=== PATIENT | male | born 1990 | race Two or more races ===

== ENCOUNTER 2024-12-11 16:22 | Emergency (ER) | payer MEDICAID, SELFPAY ==
[2024-12-11 16:59] VITALS: BP 129/76; PULSE 78; RESP 18; TEMP 37.6; O2SAT 96; BMI 33.0
--- NOTE | 2024-12-11 17:09 | EDNOTE_ITS ---
Upper Respiratory Inf. RME/HPI General Chief Complaint: Flu Like Symptoms Stated Complaint: CHILLS, FEVER, COUGH, HEADACHE Time Seen by Provider: 12/11/24 16:31 Arrival date/time: 12/11/24 16:22 RME / HPI RME / HPI Narrative: 34-year-old male patient with no significant medical history, came in for evaluation regarding flulike symptoms for the last 4 days, associated with shortness of breath, worsening cough, 70 moderate. Patient also complained of on and off fever. Denies any other complaints medication was taken prior to arrival. Related Data Previous Rx's ?Medication ?Instructions ?Recorded gentamicin 0.3 % eye drops 1 drop ophthalmic (eye) Q4H #5 mL 06/21/18 phenazopyridine 200 mg tablet 200 mg PO TID 6 doses #6 tabs 07/16/24 (Pyridium) ibuprofen 800 mg tablet 800 mg PO TID PRN pain #30 t abs 12/11/24 oseltamivir 75 mg capsule (Tamiflu) 75 mg PO BID 5 day s #10 caps 12/11/24 Allergies Allergy/AdvReac Type Severity Reaction Status Date / Time No Known Allergies Allergy Verified 12/11/24 16:23 Review of Systems Review of Systems Narrative Review of Systems: Review of system reviewed and within normal limits except mentioned in HPI ED Exam Narrative Physical exam: VITAL SIGNS: Reviewed. GENERAL APPEARANCE: Alert and interactive, follows commands, no acute distress, HEAD AND FACE: Non-traumatic. ENT: PERRL, pink conjunctivitis, eyelid no trauma, Mucous membrane moist. NECK: Supple, nontender, no nuchal rigidity. CHEST: No tenderness, no crepitus, no paradoxical movement, no retractions. LUNGS: Clear, well ventilated, symmetric, no rales, no wheezing, no ronchi, no stridor, good breath sounds bilaterally. HEART: Regular rate, regular rhythm, no murmur, no gallops. ABDOMEN: Soft, positive bowel sounds, nondistended, no guarding, nontender, no rebound, no masses, RECTAL: Deferred. GENITAL: Deferred. NEUROLOGICAL: Gross motor function intact sensory function intact, Appropriate for age. MUSCULOSKELETAL: low back nontender, full range of motion. EXTREMITIES: Nontender, full range of motion. SKIN: Color pink, dry, no rash, no lacerations, no abrasions, no contusions. LYMPHATICS: Deferred. Course Quality Measures none Orders Category Date Time Status Bedside COVID-19 Antigen Test NOW Care 12/11/24 17:09 Active Bedside Influenza A&B Antigen Test NOW Care 12/11/24 17:09 Completed XR chest 2V Stat Exams 12/11/24 17:09 Completed Ibuprofen Tab [Motrin Tab] Med 12/11/24 17:09 Discontinued 800 mg PO X1 ONE Oseltamivir [Tamiflu] Med 12/11/24 19:25 Discontinued 75 mg PO X1 ONE predniSONE Med 12/11/24 17:09 Discontinued 60 mg PO X1 ONE Vital Signs Vital signs: Vital Signs Temperature 99.7 F 12/11/24 16:59 Pulse Rate 78 12/11/24 16:59 Respiratory Rate 18 12/11/24 16:59 Blood Pressure 129/76 12/11/24 16:59 Pulse Oximetry (%) 96 12/11/24 16:59 Oxygen Delivery Method Room Air 12/11/24 16:59 Upper Respiratory Infection MDM Narrative MDM Narrative:: Patient tested positive for influenza. The rest of the labs unremarkable except for possible pneumonia on the right however patient's not having pain to the right side of the chest. Patient pneumonia is viral in nature. I will not start the patient on antibiotic. Patient received Tamiflu in the emergency room. Patient appears nontoxic and hemodynamically stable. Patient discharged home and instructed to follow-up with primary care provider in 24 to 48 hours. Instructed to return to the emergency department immediately if worsening of symptoms Patient data External records reviewed:: None Clinical information provided by:: patient Social determinants that could affect healthcare access:: none Patient has the following chronic illnesses:: None How is presenting disease/condition affected by chronic disease/condition?: no chronic disease Evaluation data The following diagnostics were reviewed and interpreted by me:: lab results and radiology exam(s) Lab and/or radiology exams considered but not ordered:: None Interpretation Summary: See results in MDM Medications / Prescriptions Medications or Prescriptions considered but not ordered:: None Medication administrations:: Medication Administration History Discontinued Medications Ibuprofen (Ibuprofen Tab 400 Mg Tablet) 800 mg PO X1 ONE Stop: 12/11/24 17:10 Last Admin: 12/11/24 18:41 Dose: 800 mg Documented By: Oseltamivir Phosphate (Oseltamivir 75 Mg Capsule) 75 mg PO X1 ONE Stop: 12/11/24 19:26 Last Admin: 12/11/24 19:38 Dose: 75 mg Documented By: CVL Prednisone (Prednisone 20 Mg Tablet) 60 mg PO X1 ONE Stop: 12/11/24 17:10 Last Admin: 12/11/24 18:40 Dose: 60 mg Documented By: Prednisone Tamiflu and Motrin Consultations Consultation(s) initiated? (list below): No Diagnosis Upper Respiratory Differential Diagnosis: upper respiratory infection, viral infection and influenza Most likely diagnosis given after review of the tests above:: Influenza Admission Indicated Admission indicated?: not indicated Admission Request Was there a request for admission?: No Disposition Plan Disposition Plan: Discharge Discharge Attestation Discharge Attestation: The patient was given an opportunity to ask questions and understood the discharge instructions. Discharge instructions specifically effects, indications for sooner follow up or return to the emergency department, and the expected course of current diagnosis. Patient condition: Stable Discharge Plan Plan Patient Disposition: HOME (Self Care) Disposition Comment: stable Prescriptions/Referrals Prescriptions/Med Rec: New oseltamivir [Tamiflu] 75 mg capsule 75 mg PO BID 5 Days Qty: 10 0RF ibuprofen 800 mg tablet 800 mg PO TID PRN (Reason: pain) Qty: 30 0RF No Action gentamicin 0.3 % drops 1 drop OPHTHALMIC Q4H Qty: 5 0RF phenazopyridine [Pyridium] 200 mg tablet 200 mg PO TID Qty: 6 0RF Referrals: Luis Carlos Nieto MD [Primary Care Provider] - In 1 week Problem List Clinical Impression: Influenza Patient/Caregiver Discharge Instructions Discharge Activity: activity as tolerated Education Materials: ED Influenza (Adult) Additional Instructions: Thank you for the opportunity for serving you today. You are stable for discharged . You are advised to: Follow-up with your PCP in 1 to 2 days Return to ED for worsening of symptoms Increase oral fluids Take medication as prescribed Print Language: Ethiopian Stand Alone Forms: [employer] Award Info., Work/School Release, Patient Portal Info Letter
--- NOTE | 2024-12-11 17:09 | XR_ITS ---
Examination: PA lateral chest 2 views TECHNIQUE: Upright PA and lateral chest 2 views Exam date and time: December 11, 2024 at 1734 hours INDICATIONS: Fever coughing beginning 3 days ago. FINDINGS: Early right base pneumonia. Minimal prominence left ventricle No pulmonary edema The osseous structures are intact IMPRESSION: Early right base pneumonia.
[2024-12-11] MEDS: predniSONE 20 MG TABLET 60 MG PO (18:40)
[2024-12-11] MEDS: IBUPROFEN TAB 400 MG TABLET 800 MG PO (18:41)
[2024-12-11] MEDS: OSELTAMIVIR 75 MG CAPSULE PO (19:38)
[2024-12-11 20:21] VITALS: RESP 18
== END 2024-12-11 20:22 | disposition home or self-care (01) ==
PROVIDERS: Emergency Provider Emergency Medicine; PCP Family Medicine
DX: J11.00 Influenza due to unidentified influenza virus with unspecified type of pneumonia (principal)
CPT/HCPCS: 71046; 87400; 87811; 99283; J7512; A9270